=== PATIENT | male | born 1965 | race Hispanic/Latino ===

== ENCOUNTER 2017-06-25 01:37 | Inpatient (IN) | payer MEDICAID ==
[2017-06-25 01:54] VITALS: BMI 38.9
--- NOTE | 2017-06-25 01:55 | ED PDOC ---
HPI: Chest Pain Time Seen by Provider: 06/25/17 01:50 Chief Complaint (Nursing): Chest Pain Chief Complaint (Provider): Chest Pain History Per: Patient History/Exam Limitations: no limitations Onset/Duration Of Symptoms: Hrs (x2) Current Symptoms Are (Timing): Still Present Associated Symptoms: Dyspnea Additional Complaint(s): 52 year old male presents to ED with complaints of chest pain x2 hours and has a past medical history of DVT in his left leg, AAA, active smoking, IVC filter. Patient originally noted pain to his left leg last morning and "feeling weird all day", and stated that onset of chest pain occurred while sitting. Confirms that chest pain radiates to his neck and denies ever experiencing such symptoms in the past. (+) dyspnea. PCP: None - Risk Factors PE Risk Factors: Pos: Previous DVT Past Medical History Reviewed: Historical Data, Nursing Documentation, Vital Signs Vital Signs: Last Vital Signs Temp Pulse 59 L 06/25/17 06:26 Resp 20 06/25/17 06:26 BP 121/65 06/25/17 06:26 Pulse Ox 96 06/25/17 06:26 - Medical History PMH: No Chronic Diseases, COPD, Deep Vein Thrombosis, Seizures, Sleep Apnea - Family History Family History: States: Unknown Family Hx - Social History Current smoker - smoking cessation education provided: Yes SMOKER/PACKS PER DAY:: 1 Ex-Smoker (has not smoked in the last 12 months): No - Immunization History Hx Tetanus Toxoid Vaccination: Yes Hx Influenza Vaccination: No Hx Pneumococcal Vaccination: Yes - Home Medications Home Medications: Ambulatory Orders Medication Instructions Recorded Fluticasone/Salmeterol 500/50 1 INH Q12 11/24/13 [Advair Diskus 500/50] Omeprazole 20 mg PO DAILY 11/24/13 Rivaroxaban [Xarelto] PO DAILY 11/24/13 Tiotropium Daggett Inhaler 1 DAILY 11/24/13 [Spiriva Inhalation Handihaler Device] Acetaminophen/Oxycodone Hydr 1 tab PO Q6 #20 tab 12/23/13 [Percocet 325 mg-5 mg] Gabapentin [Neurontin] 600 mg PO Q8 #0 cap 12/23/13 Naproxen [Anaprox DS] 550 mg PO Q12 PRN #0 tab 12/23/13 Phenytoin Sodium Extended 200 mg PO TID #0 cer 12/23/13 [Dilantin] - Allergies Allergies/Adverse Reactions: Allergies Allergy/AdvReac Type Severity Reaction Status Date / Time No Known Allergies Allergy Verified 06/25/17 01:51 LORNA Risk Score for UA/NSTEMI - LORNA Risk Score Age > 64: NO LORNA Score: 0 Risk %: 5% Curb-65 Severity Score - CURB-65 Severity Score Confusion: No Respiratory Rate greater than/equal to 30: No Systolic BP <90 or Diastolic BP less than/equal 60mmHg: No Age >64: No Curb-65 Score: 0 Percentage 30-day mortality: 0.6% Wells Criteria for PE - Wells Criteria for Pulmonary Embolism Heart Rate >100: Yes Previous, objectively diagnosed PE or DVT: Yes Hemoptysis: No Malignancy w/treatment within 6 months, or palliative: No Total Score: 3.0 Review of Systems ROS Statement: Except As Marked, All Systems Reviewed And Found Negative Cardiovascular: Positive for: Chest Pain Respiratory: Positive for: Shortness of Breath Musculoskeletal: Positive for: Neck Pain (chest pain radiates to neck), Leg Pain (left leg pain) Physical Exam - Reviewed Nursing Documentation Reviewed: Yes Vital Signs Reviewed: Yes - Physical Exam Appears: Positive for: Uncomfortable, In Acute Distress Skin: Positive for: Warm, Diaphoresis Eye Exam: Positive for: Normal appearance, EOMI, PERRL Neck: Positive for: Normal, Painless ROM, Supple Cardiovascular/Chest: Positive for: Regular Rate, Rhythm. Negative for: Murmur Respiratory: Positive for: Normal Breath Sounds Gastrointestinal/Abdominal: Positive for: Normal Exam, Soft. Negative for: Tenderness Neurologic/Psych: Positive for: Alert, Oriented. Negative for: Motor/Sensory Deficits - Laboratory Results Result Diagrams: 06/25/17 01:50 06/25/17 01:50 - Critical Care Total Time (In Min): 60 Medical Decision Making Medical Decision Makin Initial impression: concern for dissection vs PE vs ACS vs PNA Initial plan: * CT DISSECTION STUDY * EKG * Labs * Trop I * PTT/PT * CXR 0342 CT ANGIO CHEST FINDINGS Limitations: Motion artifact - mild. Pulmonary arteries: No pulmonary embolism. Aorta: No dissection. No aneurysm. Lungs: Early centrilobular emphysematous changes. No consolidation. 0.3 cm RIGHT lower lobe nodule. Pleural space: No significant effusion. No pneumothorax. Heart: No cardiomegaly. No significant pericardial effusion. Bones/joints: Degenerative changes of spine. No acute fracture. Soft tissues: Unremarkable. Lymph nodes: No pathologically enlarged lymph nodes. IMPRESSION: 1. No aortic dissection. 2. Pulmonary nodule. For low-risk patients, no follow-up is necessary. For high- risk patients (smoking history or other known risk factors) an optional CT at 12 months could be performed. 3. Incidental/non-acute findings are described above. CT ANGIO A/P FINDINGS Limitations: Motion artifact - mild. VASCULATURE: Aorta: Minimal atherosclerotic disease. No dissection. 3.2 cm infrarenal aneurysm. Peripheral thrombus within aneurysm. No rupture. Celiac trunk and mesenteric arteries: No occlusion or significant stenosis. Renal arteries: No occlusion or significant stenosis. Iliac arteries: Mild atherosclerotic disease. No occlusion or significant stenosis. Inferior vena cava: IVC filter. ABDOMEN: Liver: Unremarkable. No mass. Gallbladder and bile ducts: Unremarkable. No calcified stones. No ductal dilation. Pancreas: Unremarkable. No ductal dilation. No mass. Spleen: Unremarkable. No splenomegaly. Adrenals: Unremarkable. No mass. Kidneys and ureters: Unremarkable. No hydronephrosis. No solid mass. Stomach and bowel: Unremarkable. No obstruction. No mucosal thickening. PELVIS: Appendix: No findings to suggest acute appendicitis. Bladder: Unremarkable. No mass. Reproductive: Prostate not visualized or imaged. ABDOMEN and PELVIS: Intraperitoneal space: Unremarkable. No significant fluid collection. No free air. Retroperitoneal space: Surgical clips within right retroperitoneum. Bones/joints: Degenerative changes of spine. No acute fracture. Soft tissues: Unremarkable. Lymph nodes: No pathologically enlarged lymph nodes. Other findings: IMPRESSION: 1. No aortic dissection. 2. Abdominal aortic aneurysm. Followup as warranted. 3. Incidental/non-acute findings are described above. 0535 Upon re-evaluation patient is feeling much better. Vitals show significant improvement. Will admit for r/o ACS with continuous cardiac monitoring and serial troponin/EKG. Care discussed with DR. Richard who will admit and with Dr. Melendez, cardiology. Pt's BP significantly improved. Scribe Attestation: Documented by April Velazquez acting as a scribe for Owen Grimm MD. Scribe Attestation: All medical record entries made by the Scribe were at my direction and personally dictated by me. I have reviewed the chart and agree that the record accurately reflects my personal performance of the history, physical exam, medical decision making, and the department course for this patient. I have also personally directed, reviewed, and agree with the discharge instructions and disposition. Disposition - Clinical Impression Clinical Impression: Chest pain, AAA (abdominal aortic aneurysm) - Disposition Disposition Time: 06:00 Condition: FAIR
[2017-06-25] MEDS ORDERED: Iodixanol 320 MG/ML 100 ML BOTTLE IV ONE (01:58)
[2017-06-25] MEDS ORDERED: Sodium Chloride 0.9% 100 ML ONE (01:59)
[2017-06-25 02:08] LABS: BASO # 0.1 K/uL (0.0-0.2); EOS # 0.4 K/uL (0.0-0.7); EOS % 2.9 % (0.0-4.0); HEMOGLOBIN 15.6 g/dL (12.0-18.0); LYMPH # 4.5 K/uL (1.0-4.3); MEAN CELL VOLUME 93.4 fl (80.0-94.0); MEAN CORPUSCULAR HEMOGLOBIN 31.5 pg (27.0-31.0); MEAN CORPUSCULAR HGB CONC 33.7 g/dL (33.0-37.0); MEAN PLATELET VOLUME 8.4 fl (7.2-11.7); MONO % 7.6 % (0.0-10.0); NEUT # 6.9 K/uL (1.8-7.0); NEUT % 53.5 % (50.0-75.0); NRBC % 0.1 % (0.0-0.0); RBC 4.94 Mil/uL (4.40-5.90); RED CELL DISTRIBUTION WIDTH 14.1 % (11.5-14.5)
[2017-06-25 02:17] LABS: CALCIUM 9.1 mg/dL (8.4-10.2); GFR AFRICAN-AMERICAN > 60; GFR NON-AFRICAN AMERICAN > 60
[2017-06-25 02:29] LABS: BLOOD UREA NITROGEN 19 mg/dl (9-20)
--- NOTE | 2017-06-25 03:43 | CT ---
EXAM: CT Angiography Chest Without and With Intravenous Contrast CLINICAL HISTORY: 52 years old, male; Pain; Abdominal pain; Generalized; Chest pain; Type not specified; Additional info: Chest pain, abd pain, R/O dissection TECHNIQUE: Axial computed tomographic angiography images of the chest without and with intravenous contrast using pulmonary embolism protocol. All CT scans at this facility use one or more dose reduction techniques, viz.: automated exposure control; ma/kV adjustment per patient size (including targeted exams where dose is matched to indication; i.e. head); or iterative reconstruction technique. MIP reconstructed images were created and reviewed. Coronal and sagittal reformatted images were created and reviewed. CONTRAST: 100 mL of [id number] administered intravenously. COMPARISON: No relevant prior studies available. FINDINGS: Limitations: Motion artifact - mild. Pulmonary arteries: No pulmonary embolism. Aorta: No dissection. No aneurysm. Lungs: Early centrilobular emphysematous changes. No consolidation. 0.3 cm RIGHT lower lobe nodule. Pleural space: No significant effusion. No pneumothorax. Heart: No cardiomegaly. No significant pericardial effusion. Bones/joints: Degenerative changes of spine. No acute fracture. Soft tissues: Unremarkable. Lymph nodes: No pathologically enlarged lymph nodes. IMPRESSION: 1. No aortic dissection. 2. Pulmonary nodule. For low-risk patients, no follow-up is necessary. For high-risk patients (smoking history or other known risk factors) an optional CT at 12 months could be performed. 3. Incidental/non-acute findings are described above. EXAM: CT Angiography Abdomen and Pelvis With Intravenous Contrast CLINICAL HISTORY: 52 years old, male; Pain; Abdominal pain; Generalized; Chest pain; Type not specified; Additional info: Chest pain, abd pain, R/O dissection TECHNIQUE: Axial computed tomographic angiography images of the abdomen and pelvis with intravenous contrast. All CT scans at this facility use one or more dose reduction techniques, viz.: automated exposure control; ma/kV adjustment per patient size (including targeted exams where dose is matched to indication; i.e. head); or iterative reconstruction technique. MIP reconstructed images were created and reviewed. Coronal and sagittal reformatted images were created and reviewed. CONTRAST: 100 mL of [id number] administered intravenously. COMPARISON: No relevant prior studies available. FINDINGS: Limitations: Motion artifact - mild. VASCULATURE: Aorta: Minimal atherosclerotic disease. No dissection. 3.2 cm infrarenal aneurysm. Peripheral thrombus within aneurysm. No rupture. Celiac trunk and mesenteric arteries: No occlusion or significant stenosis. Renal arteries: No occlusion or significant stenosis. Iliac arteries: Mild atherosclerotic disease. No occlusion or significant stenosis. Inferior vena cava: IVC filter. ABDOMEN: Liver: Unremarkable. No mass. Gallbladder and bile ducts: Unremarkable. No calcified stones. No ductal dilation. Pancreas: Unremarkable. No ductal dilation. No mass. Spleen: Unremarkable. No splenomegaly. Adrenals: Unremarkable. No mass. Kidneys and ureters: Unremarkable. No hydronephrosis. No solid mass. Stomach and bowel: Unremarkable. No obstruction. No mucosal thickening. PELVIS: Appendix: No findings to suggest acute appendicitis. Bladder: Unremarkable. No mass. Reproductive: Prostate not visualized or imaged. ABDOMEN and PELVIS: Intraperitoneal space: Unremarkable. No significant fluid collection. No free air. Retroperitoneal space: Surgical clips within right retroperitoneum. Bones/joints: Degenerative changes of spine. No acute fracture. Soft tissues: Unremarkable. Lymph nodes: No pathologically enlarged lymph nodes. Other findings: IMPRESSION: 1. No aortic dissection. 2. Abdominal aortic aneurysm. Followup as warranted. 3. Incidental/non-acute findings are described above.
[2017-06-25] MEDS ORDERED: Morphine 4 MG/ML VIAL IVP STA (04:30)
[2017-06-25] MEDS ORDERED: Morphine 4 MG/ML VIAL ONE (04:57)
[2017-06-25 07:15] LABS: INR 1.1 (0.9-1.2); PARTIAL THROMBOPLASTIN TIME 26.2 Seconds (25.6-37.1); PROTHROMBIN TIME 11.8 Seconds (9.8-13.1)
--- NOTE | 2017-06-25 08:36 | US ---
PROCEDURE: Bilateral lower extremity venous duplex Doppler. HISTORY: r/o DVT COMPARISON: None available. TECHNIQUE: Bilateral common femoral, superficial femoral, popliteal and posterior tibial veins were evaluated. Flow was assessed with color Doppler, compressibility, assessment of phasic flow and augmentation response. FINDINGS: COMMON FEMORAL VEIN: Right CFV: Unremarkable. Left CFV: Unremarkable. SUPERFICIAL FEMORAL VEIN: Right SFV: Unremarkable. Left SFV: Unremarkable. POPLITEAL VEIN: Right Popliteal: Unremarkable. Left Popliteal: Unremarkable. POSTERIOR TIBIAL VEIN: Right PTV: Unremarkable. Left PTV: Unremarkable. OTHER FINDINGS: None. IMPRESSION: No evidence of deep venous thrombosis.
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
--- NOTE | 2017-06-25 09:38 | RAD ---
PROCEDURE: CHEST RADIOGRAPH, 1 VIEW HISTORY: cp, sob COMPARISON: None available. FINDINGS: LUNGS: Clear. PLEURA: No pneumothorax or pleural fluid seen. CARDIOVASCULAR: Normal. OSSEOUS STRUCTURES: No significant abnormalities. VISUALIZED UPPER ABDOMEN: Normal. OTHER FINDINGS: None. IMPRESSION: No active disease.
[2017-06-25 09:42] LABS: BARBITURATES, UR NEGATIVE (NEGATIVE); BENZODIAZEPINES, UR NEGATIVE (NEGATIVE); OPIATES, UR POSITIVE (NEGATIVE); PHENCYCLIDINE, UR NEGATIVE (NEGATIVE)
[2017-06-25 10:24] LABS: URINE BILIRUBIN NEGATIVE (NEGATIVE); URINE BLOOD NEGATIVE (NEGATIVE); URINE CLARITY CLEAR (Clear); URINE COLOR YELLOW (YELLOW); URINE GLUCOSE (UA) NEG (Normal); URINE LEUKOCYTE ESTERASE NEG Leu/uL (Negative); URINE PROTEIN NEGATIVE (NEGATIVE); URINE UROBILINOGEN 0.2-1.0 mg/dL (0.2-1.0)
--- NOTE | 2017-06-25 12:12 | CARD ---
APPROVED REPORT EKG Measurement Heart [id number] <Conclusion> Normal sinus rhythm Rightward axis Borderline ECG
[2017-06-25] MEDS ORDERED: Pneumococcal 23-Valent Vaccine IM ONE (12:24)
[2017-06-25] MEDS: Morphine 4 MG/ML VIAL IVP PRN ×2 (12:32→21:03)
[2017-06-25] MEDS: Fluticasone-Salmeterol 500-50mcg Diskus INH SCH ×2 (13:58→21:02)
[2017-06-25] MEDS: Dextrose 5%/0.45% NS 1,000 ML IV SCH (14:04)
--- NOTE | 2017-06-25 15:24 | US ---
HISTORY: ABDOMINAL PAIN COMPARISON: Correlations made to CTA of the chest, abdomen and pelvis performed earlier the same day. TECHNIQUE: Sonographic evaluation of the abdomen. FINDINGS: LIVER: Enlarged, measuring 17.9 cm. Increased echogenicity of the liver parenchyma. No mass. No intrahepatic bile duct dilatation. GALLBLADDER: Unremarkable. No gallstones. COMMON BILE DUCT: Measures 5 mm. No stones. No dilatation. PANCREAS: Unremarkable as visualized. No mass. No ductal dilatation. RIGHT KIDNEY: Measures 13.2 x 7.0 x 6.4cm. Normal echogenicity. No calculus, mass, or hydronephrosis. LEFT KIDNEY: Measures 14.5 x 6.0 x 5.7cm. Normal echogenicity. No calculus, mass, or hydronephrosis. SPLEEN: Normal in size and contour. No mass. AORTA: No aneurysmal dilatation. IVC: Unremarkable. OTHER FINDINGS: None. IMPRESSION: Hepatomegaly with steatosis.
[2017-06-25] MEDS: Albuterol-Ipratrop 3 mg / 0.5 (3 ml) UD INH SCH ×2 (15:34→19:25)
--- NOTE | 2017-06-25 21:05 | HP ---
HISTORY OF PRESENT ILLNESS: Mr. Mcqueen is a 52-year-old male who was admitted via the emergency room because of chest and abdominal pain. He indicates that he has had right leg pain on and off for about 2 weeks prior to presentation, but then developed abdominal discomfort several days ago and then chest pain. The pain was mainly right sided, but then radiated to the left side, he sought help in the emergency room and at first thought to be having dissecting abdominal aneurysm or thoracic aneurysm and had a CAT scan of the chest and abdomen done, which did not show dissection even though he has small abdominal aneurysm. PAST MEDICAL HISTORY: He has an extensive past medical history including chronic back pain for which he had back surgery done for disk disease and chronic obstructive pulmonary disease, which is due to continue cigarette use. He also has a history of obstructive sleep apnea syndrome for which he is on BiPAP therapy and has been taking blood thinners for deep venous thrombosis of the lower extremity and had an IVC filter placed. He denies any other medical history including blood pressure or diabetes, but was noted to have elevated blood pressure in the emergency room, but that came down to normal without therapy. FAMILY HISTORY: Remarkable for mother who had cardiac disease. SOCIAL HISTORY: The patient continues to smoke cigarettes heavily. Does not use drugs or use alcohol. 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 PHYSICAL EXAMINATION: GENERAL: The patient is morbidly obese. He is alert, oriented, and appears to be in some pain from abdominal discomfort issues that he has a pulsatile abdominal discomfort. VITAL SIGNS: Blood pressure 121/65, but was as high as 177/130, pulse is 60 down from 105, respiratory rate is 20, he is afebrile, and O2 saturation 96% on room air. SKIN: Shows fair turgor. HEENT: Pupils are equal and reactive to light and accommodation. Mouth shows fair hygiene. JVP is flat. LUNGS: Fair aeration. Clear. HEART: Regular. ABDOMEN: Soft with tenderness in the suprapubic area. No masses felt. No organomegaly. EXTREMITIES: Shows no edema or cyanosis. CENTRAL NERVOUS SYSTEM: Appears grossly intact. LABORATORY DATA: WBC 13, hemoglobin 15.6, and platelet count 297,000. Sodium 143, potassium 5, BUN of 19, creatinine 0.9, and troponin 0.012. EKG that was done in the emergency room is remarkable for normal sinus rhythm, right axis deviation, otherwise unremarkable. Chest x-ray official report is pending. CAT scan of chest and abdomen, no aortic dissection, no pulmonary emboli, and emphysematous changes in the lungs noted. The abdomen and gallbladder unremarkable. Pancreas unremarkable. Spleen unremarkable. Adrenals unremarkable. Kidney and ureters unremarkable. Stomach and bowel are unremarkable. Abdominal aortic aneurysm noted 3.2 cm infrarenal, peripheral thrombus within aneurysm, no rupture, mild atherosclerotic disease noted, and IVC filter noted in the inferior vena cava. IMPRESSION: Chest pain appears to be atypical, abdominal pain questionable etiology, hypertension probably secondary to pain to be corrected without medication, history of chronic obstructive pulmonary disease, history of deep venous thrombosis in the past, and history of obstructive sleep apnea syndrome. PLAN: The plan is to admit the patient to telemetry, obtain serial cardiac enzymes to rule out acute coronary syndrome and for pain will be given. We will obtain ultrasound of the abdomen to rule out for intraabdominal pathology. Further therapy will depend on findings. Reddy Richard MD
[2017-06-26] MEDS: Dextrose 5%/0.45% NS 1,000 ML IV SCH (00:25)
[2017-06-26] MEDS: Morphine 4 MG/ML VIAL IVP PRN ×3 (05:45→22:33)
[2017-06-26] MEDS: Albuterol-Ipratrop 3 mg / 0.5 (3 ml) UD INH SCH ×4 (07:37→19:55)
[2017-06-26] MEDS: Fluticasone-Salmeterol 500-50mcg Diskus INH SCH ×2 (08:17→21:59)
--- NOTE | 2017-06-26 08:28 | CP.PCM.PN ---
Subjective - Date & Time of Evaluation Date of Evaluation: 06/26/17 Time of Evaluation: 08:10 - Subjective Subjective: Intermittent abd pain Rxed with morphine No bowel irregularities No chills or fever Able to sleep well No chest pains US abdomen unremarkable findings Echo reviewed : Preserved LV syst function with depressed distolic compliance No blood in urine (Doubt renal calculous) Coccain metabolites in the urine+ve No cardiac issues detected. Objective - Vital Signs/Intake and Output Vital Signs (last 24 hours): Temp Pulse Resp BP Pulse Ox 97.6 F 51 L 18 121/67 96 06/26/17 08:05 06/26/17 08:05 06/26/17 08:05 06/26/17 08:05 06/26/17 08:05 - Medications Medications: Current Medications Albuterol/Ipratropium (Duoneb 3 Mg/0.5 Mg (3 Ml) Ud) 3 ml INH RQID [facility] Last Admin: 06/26/17 07:37 Dose: 3 ml Aspirin (Aspirin Chewable) 81 mg PO DAILY [facility] Last Admin: 06/26/17 08:17 Dose: 81 mg Gabapentin (Neurontin) 600 mg PO Q8 [facility] Last Admin: 06/26/17 08:18 Dose: 600 mg Dextrose/Sodium Chloride (Dextrose 5%/0.45% Ns 1000 Ml) 1,000 mls @ 80 mls/hr IV .[id number] [facility] Stop: 06/26/17 09:48 Last Admin: 06/26/17 00:25 Dose: 80 mls/hr Morphine Sulfate (Morphine) 2 mg IVP Q4 PRN PRN Reason: Pain, moderate (4-7) Last Admin: 06/26/17 05:45 Dose: 2 mg Phenytoin Sodium (Dilantin) 200 mg PO TID [facility] Last Admin: 06/26/17 08:17 Dose: 200 mg Rivaroxaban (Xarelto) 20 mg PO DAILY [facility] PRN Reason: Protocol Last Admin: 06/26/17 08:17 Dose: 20 mg Fluticasone/Salmeterol (Advair Diskus 500/50) 1 puff INH Q12 [facility] Last Admin: 06/26/17 08:17 Dose: 1 puff - Labs Labs: 06/25/17 01:50 06/25/17 01:50 PT 11.8 Seconds (9.8-13.1) 06/25/17 06:45 INR 1.1 (0.9-1.2) 06/25/17 06:45 APTT 26.2 Seconds (25.6-37.1) 06/25/17 06:45
--- NOTE | 2017-06-26 11:59 | CARD ---
APPROVED REPORT EXAM: Two-dimensional and M-mode echocardiogram with Doppler and color Doppler. Other Information Quality : GoodRhythm : NSR INDICATION Dyspnea Chest Pain 2D DIMENSIONS IVSd1.83 (0.7-1.1cm)LVDd4.68 (3.9-5.9cm) LVOT Diameter2.43 (1.8-2.4cm)PWd1.33 (0.7-1.1cm) IVSs1.86 (0.8-1.2cm)LVDs2.53 (2.5-4.0cm) FS (%) 46.0 %PWs1.75 (0.8-1.2cm) M-Mode DIMENSIONS Left Atrium (MM)4.59 (2.5-4.0cm)IVSd1.56 (0.7-1.1cm) Aortic Root3.13 (2.2-3.7cm)LVDd5.03 (4.0-5.6cm) Aortic Cusp Exc.2.00 (1.5-2.0cm)PWd1.25 (0.7-1.1cm) IVSs2.00 cmFS (%) 47 % LVDs2.69 (2.0-3.8cm)PWs1.50 cm Mitral Valve MV E Umnhzwik82.1cm/sMV DECEL [id number] A Rineexis92.3cm/s MV [id number]/A ratio1.3MVA (PHT)2.82cm2 TDI Lateral E' Peak V10.76cm/sMedial E' Peak V8.47cm/sE/Lateral E'7.4 E/Medial E'9.3 Pulmonary Valve PV Peak Mytmaqzq642.9cm/s LEFT VENTRICLE The left ventricle is normal size. There is moderate concentric left ventricular hypertrophy. The left ventricular function is normal. The left ventricular ejection fraction is 60% There is normal LV segmental wall motion. Transmitral Doppler flow pattern is Grade I-abnormal relaxation pattern. No left ventricle thrombus noted on this study. There is no ventricular septal defect visualized. There is no left ventricular aneurysm. There is no mass noted in the left ventricle. RIGHT VENTRICLE The right ventricle is normal size. There is normal right ventricular wall thickness. The right ventricular systolic function is normal. ATRIA The left atrium size is normal. The right atrium size is normal. The interatrial septum is intact with no evidence for an atrial septal defect. AORTIC VALVE The aortic valve is normal in structure. No aortic regurgitation is present. There is no aortic valvular stenosis. There is no aortic valvular vegetation. MITRAL VALVE The mitral valve is normal in structure. There is no evidence of mitral valve prolapse. There is no mitral valve stenosis. There is no mitral valve regurgitation noted. TRICUSPID VALVE The tricuspid valve is normal in structure. There is no tricuspid valve regurgitation noted. There is no tricuspid valve prolapse or vegetation. There is no tricuspid valve stenosis. PULMONIC VALVE The pulmonary valve is normal in structure. There is no pulmonic valvular regurgitation. There is no pulmonic valvular stenosis. GREAT VESSELS The aortic root is normal in size. The ascending aorta is normal in size. The IVC is normal in size and collapses >50% with inspiration. PERICARDIAL EFFUSION The pericardium appears normal. There is no pleural effusion. <Conclusion> Normal LV Function Concentric LVH
--- NOTE | 2017-06-26 13:25 | CP.PCM.PN ---
Subjective - Date & Time of Evaluation Date of Evaluation: 06/26/17 Time of Evaluation: 13:31 - Subjective Subjective: C/O PULSATILE ABDOMINAL PAINS NO RECURRENCE OF CHEST PAINS WANTS TO BE EVALUATED BY SURGERY Objective - Vital Signs/Intake and Output Vital Signs (last 24 hours): Temp Pulse Resp BP Pulse Ox 97.7 F 57 L 18 127/63 97 06/26/17 11:58 06/26/17 11:58 06/26/17 11:58 06/26/17 11:58 06/26/17 11:58 - Medications Medications: Current Medications Albuterol/Ipratropium (Duoneb 3 Mg/0.5 Mg (3 Ml) Ud) 3 ml INH RQID [facility] Last Admin: 06/26/17 11:27 Dose: 3 ml Aspirin (Aspirin Chewable) 81 mg PO DAILY [facility] Last Admin: 06/26/17 08:17 Dose: 81 mg Gabapentin (Neurontin) 600 mg PO Q8 [facility] Last Admin: 06/26/17 08:18 Dose: 600 mg Morphine Sulfate (Morphine) 2 mg IVP Q4 PRN PRN Reason: Pain, moderate (4-7) Last Admin: 06/26/17 05:45 Dose: 2 mg Phenytoin Sodium (Dilantin) 200 mg PO TID [facility] Last Admin: 06/26/17 12:58 Dose: 200 mg Rivaroxaban (Xarelto) 20 mg PO DAILY [facility] PRN Reason: Protocol Last Admin: 06/26/17 08:17 Dose: 20 mg Fluticasone/Salmeterol (Advair Diskus 500/50) 1 puff INH Q12 [facility] Last Admin: 06/26/17 08:17 Dose: 1 puff - Labs Labs: 06/25/17 01:50 06/25/17 01:50 PT 11.8 Seconds (9.8-13.1) 06/25/17 06:45 INR 1.1 (0.9-1.2) 06/25/17 06:45 APTT 26.2 Seconds (25.6-37.1) 06/25/17 06:45 - Constitutional Appears: No Acute Distress - Head Exam Head Exam: ATRAUMATIC, NORMAL INSPECTION, NORMOCEPHALIC - Eye Exam Eye Exam: EOMI, Normal appearance, PERRL Pupil Exam: NORMAL ACCOMODATION, PERRL - ENT Exam ENT Exam: Mucous Membranes Moist, Normal Exam - Neck Exam Neck Exam: Full ROM, Normal Inspection. absent: Lymphadenopathy - Respiratory Exam Respiratory Exam: Clear to Ausculation Bilateral, NORMAL BREATHING PATTERN - Cardiovascular Exam Cardiovascular Exam: REGULAR RHYTHM, +S1, +S2. absent: Murmur - GI/Abdominal Exam GI & Abdominal Exam: Soft, Normal Bowel Sounds. absent: Tenderness - Rectal Exam Rectal Exam: NORMAL INSPECTION - Extremities Exam Extremities Exam: Full ROM, Normal Capillary Refill, Normal Inspection. absent : Joint Swelling, Pedal Edema - Back Exam Back Exam: NORMAL INSPECTION - Neurological Exam Neurological Exam: Alert, Awake, CN II-XII Intact, Normal Gait, Oriented x3 - Psychiatric Exam Psychiatric exam: Normal Affect, Normal Mood - Skin Skin Exam: Dry, Intact, Normal Color, Warm Assessment and Plan - Assessment and Plan (Free Text) Assessment: ATYPICAL CHEST PAINS RESOLVED ABDOMINAL PAINS--?ETIOLOGY AAA-NO EVIDENCE OF DISSECTION ILLICIT DRUG USE HX OF DVT CHRONIC BACK PAIN COPD HX OF SEIZURES Plan: WILL OBTAIN VASCULAR SURGERY EVAL--IF CLEARED,WILL PLAN D/C IN AM AND OUT PT FOLLOW UP
--- NOTE | 2017-06-26 13:32 | PQF GENQUE ---
This form is a permanent part of the medical record 06/26/17 Dr. Richard, 2 physician clarifications: 1) Please specify intended meaning of 'DVT': Deep vein thrombosis Deep vein thrombophlebitis Both deep vein thrombosis and thrombophlebitis Other (please specify) Unknown 2) 3. Please specify the acuity: Acute Chronic History of/healed with no prophylaxis History of/healed with prophylaxis Other (please specify) Clinically unable to determine Unknown Documentation of a history of DVT and IVC filter . Venous Doppler : No evidence of deep venous thrombosis. Currently with active treatment of Xarelto. Clarification of your documentation is requested to better reflect the severity of illness and intensity of treatment of your patient. Indicators present PHYSICIAN'S RESPONSE Based on your medical judgment of the clinical indicators outlined above please clarify the following: [x] Practitioner response --chronic deep venous thrombosis of lower extremity [] If unable to determine, please check the box, sign and date. Present On Admission (POA) Indicator: [] Present at the time of admission [] Not present at the time of admission [] Clinically Undetermined In responding to this query, please exercise your independent professional judgment. The fact that a question is asked does not imply that any particular answer is desired or expected. Thank you for your clarification on this documentation. If you have any questions please call:ext [phone] * Thank you, Ximena Desir RN [facility]
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
[2017-06-27] MEDS: Morphine 4 MG/ML VIAL IVP PRN ×3 (04:41→14:08)
[2017-06-27] MEDS: Albuterol-Ipratrop 3 mg / 0.5 (3 ml) UD INH SCH ×4 (07:40→19:31)
[2017-06-27] MEDS: Fluticasone-Salmeterol 500-50mcg Diskus INH SCH ×2 (09:16→22:44)
--- NOTE | 2017-06-27 10:36 | CP.PCM.PN ---
Subjective - Date & Time of Evaluation Date of Evaluation: 06/27/17 Time of Evaluation: 10:33 - Subjective Subjective: Vascular Pt seen and examined. No acute events. Denies fever, nausea, diarrhea, hematochezia. Pain controlled. Pt insisting on surgical intervention ( diagnostic laparoscopy , AAA repair) eventhough we explained that there is no indicatin for surgery at this time. Objective - Vital Signs/Intake and Output Vital Signs (last 24 hours): Temp Pulse Resp BP Pulse Ox 97.8 F 65 20 189/76 H 98 06/27/17 08:02 06/27/17 09:00 06/27/17 08:02 06/27/17 08:02 06/27/17 08:02 - Medications Medications: Current Medications Albuterol/Ipratropium (Duoneb 3 Mg/0.5 Mg (3 Ml) Ud) 3 ml INH RQID [facility] Last Admin: 06/27/17 07:40 Dose: 3 ml Aspirin (Aspirin Chewable) 81 mg PO DAILY [facility] Last Admin: 06/27/17 09:16 Dose: 81 mg Gabapentin (Neurontin) 600 mg PO Q8 [facility] Last Admin: 06/27/17 09:16 Dose: 600 mg Morphine Sulfate (Morphine) 2 mg IVP Q4 PRN PRN Reason: Pain, moderate (4-7) Last Admin: 06/27/17 09:38 Dose: 2 mg Phenytoin Sodium (Dilantin) 200 mg PO TID [facility] Last Admin: 06/27/17 09:16 Dose: 200 mg Rivaroxaban (Xarelto) 20 mg PO DAILY [facility] PRN Reason: Protocol Last Admin: 06/27/17 09:17 Dose: 20 mg Fluticasone/Salmeterol (Advair Diskus 500/50) 1 puff INH Q12 [facility] Last Admin: 06/27/17 09:16 Dose: 1 puff - Labs Labs: 06/25/17 01:50 06/25/17 01:50 PT 11.8 Seconds (9.8-13.1) 06/25/17 06:45 INR 1.1 (0.9-1.2) 06/25/17 06:45 APTT 26.2 Seconds (25.6-37.1) 06/25/17 06:45 - Constitutional Appears: No Acute Distress - Head Exam Head Exam: ATRAUMATIC, NORMAL INSPECTION, NORMOCEPHALIC - Eye Exam Eye Exam: EOMI, Normal appearance, PERRL Pupil Exam: NORMAL ACCOMODATION, PERRL - ENT Exam ENT Exam: Mucous Membranes Moist, Normal Exam - Neck Exam Neck Exam: Full ROM, Normal Inspection. absent: Lymphadenopathy - Respiratory Exam Respiratory Exam: Clear to Ausculation Bilateral, NORMAL BREATHING PATTERN - Cardiovascular Exam Cardiovascular Exam: REGULAR RHYTHM, +S1, +S2. absent: Murmur - GI/Abdominal Exam GI & Abdominal Exam: Soft, Normal Bowel Sounds. absent: Distended, Firm, Guarding, Rigid, Tenderness - Extremities Exam Extremities Exam: Full ROM, Normal Capillary Refill, Normal Inspection. absent : Joint Swelling, Pedal Edema - Back Exam Back Exam: NORMAL INSPECTION - Neurological Exam Neurological Exam: Alert, Awake, CN II-XII Intact, Normal Gait, Oriented x3 - Psychiatric Exam Psychiatric exam: Normal Affect, Normal Mood - Skin Skin Exam: Dry, Intact, Normal Color, Warm Assessment and Plan - Assessment and Plan (Free Text) Assessment: 52M w polysubstance abuse including cocaine came with abdominal pain/ chest pain. Onset coincides with cocaine abuse. Pain and symptoms likely 2/2 vascular spasm due to cocaine abuse. Possibly from scar tissue from previous abdominal surgeries CT: no PE, no aortic dissection, no AAA. infra abdominal aorta 3.2cm. 2014 abdominal aorta 3.1cm VSS Plan: -Cocaine cessation -No surgical intervention needed at this time -Pain control -OK to DC for surgical standpoint -Recommend GI eval for upper endoscopy to r/o gastritis, GERD DW Dr. Howard
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
--- NOTE | 2017-06-27 11:41 | CP.PCM.DIS ---
Provider - Provider Date of Admission: 06/25/17 05:00 Attending physician: Reddy Richard MD Primary care physician: Collin Roe MD Time Spent in preparation of Discharge (in minutes): 35 Diagnosis - Discharge Diagnosis (1) Abdominal pain Status: Acute (2) Hypertension Status: Acute (3) Disc disorder Status: Acute (4) Illicit drug use Status: Acute (5) AAA (abdominal aortic aneurysm) Status: Acute (6) Chest pain Status: Acute (7) COPD (chronic obstructive pulmonary disease) Status: Acute (8) Seizure Status: Acute (9) Sleep apnea Status: Chronic Hospital Course - Lab Results Lab Results: Most Recent Lab Values WBC 13.0 K/uL (4.8-10.8) H 06/25/17 01:50 RBC 4.94 Mil/uL (4.40-5.90) 06/25/17 01:50 Hgb 15.6 g/dL (12.0-18.0) 06/25/17 01:50 Hct 46.2 % (35.0-51.0) 06/25/17 01:50 MCV 93.4 fl (80.0-94.0) 06/25/17 01:50 MCH 31.5 pg (27.0-31.0) H 06/25/17 01:50 MCHC 33.7 g/dL (33.0-37.0) 06/25/17 01:50 RDW 14.1 % (11.5-14.5) 06/25/17 01:50 Plt Count 297 K/uL (130-400) 06/25/17 01:50 MPV 8.4 fl (7.2-11.7) 06/25/17 01:50 Neut % (Auto) 53.5 % (50.0-75.0) 06/25/17 01:50 Lymph % (Auto) 35.0 % (20.0-40.0) 06/25/17 01:50 Frio % (Auto) 7.6 % (0.0-10.0) 06/25/17 01:50 Eos % (Auto) 2.9 % (0.0-4.0) 06/25/17 01:50 Baso % (Auto) 1.0 % (0.0-2.0) 06/25/17 01:50 Neut # (Auto) 6.9 K/uL (1.8-7.0) 06/25/17 01:50 Lymph # (Auto) 4.5 K/uL (1.0-4.3) H 06/25/17 01:50 Frio # (Auto) 1.0 K/uL (0.0-0.8) H 06/25/17 01:50 Eos # (Auto) 0.4 K/uL (0.0-0.7) 06/25/17 01:50 Baso # (Auto) 0.1 K/uL (0.0-0.2) 06/25/17 01:50 PT 11.8 Seconds (9.8-13.1) 06/25/17 06:45 INR 1.1 (0.9-1.2) 06/25/17 06:45 APTT 26.2 Seconds (25.6-37.1) 06/25/17 06:45 Sodium 143 mmol/l (132-148) 06/25/17 01:50 Potassium 5.0 MMOL/L (3.6-5.0) 06/25/17 01:50 Chloride 105 mmol/L (98-107) 06/25/17 01:50 Carbon Dioxide 25 mmol/L (22-30) 06/25/17 01:50 Anion Gap 18 (10-20) 06/25/17 01:50 BUN 19 mg/dl (9-20) 06/25/17 01:50 Creatinine 0.9 mg/dl (0.8-1.5) 06/25/17 01:50 Est GFR ( Amer) > 60 06/25/17 01:50 Est GFR (Non-Af Amer) > 60 06/25/17 01:50 Random Glucose 98 mg/dL (75-110) 06/25/17 01:50 Calcium 9.1 mg/dL (8.4-10.2) 06/25/17 01:50 Troponin I 0.0120 ng/mL (0.00-0.120) 06/25/17 01:50 Urine Color Yellow (YELLOW) 06/25/17 09:30 Urine Clarity Clear (Clear) 06/25/17 09:30 Urine pH 5.0 (5.0-8.0) 06/25/17 09:30 Ur Specific [place] > 1.060 (1.003-1.030) H 06/25/17 09:30 Urine Protein Negative mg/dL (NEGATIVE) 06/25/17 09:30 Urine Glucose (UA) Neg mg/dL (Normal) 06/25/17 09:30 Urine Ketones Negative mg/dL (NEGATIVE) 06/25/17 09:30 Urine Blood Negative (NEGATIVE) 06/25/17 09:30 Urine Nitrate Negative (NEGATIVE) 06/25/17 09:30 Urine Bilirubin Negative (NEGATIVE) 06/25/17 09:30 Urine Urobilinogen 0.2-1.0 mg/dL (0.2-1.0) 06/25/17 09:30 Ur Leukocyte Esterase Neg [place]/uL (Negative) 06/25/17 09:30 Urine Opiates Screen Positive (NEGATIVE) H 06/25/17 09:00 Urine Methadone Screen Negative (NEGATIVE) 06/25/17 09:00 Ur Barbiturates Screen Negative (NEGATIVE) 06/25/17 09:00 Phenytoin < 3.0 ug/ML (10-20) L 06/25/17 11:40 Ur Phencyclidine Scrn Negative (NEGATIVE) 06/25/17 09:00 Ur Amphetamines Screen Negative (NEGATIVE) 06/25/17 09:00 U Benzodiazepines Scrn Negative (NEGATIVE) 06/25/17 09:00 U Oth Cocaine Metabols Positive (NEGATIVE) H 06/25/17 09:00 U Cannabinoids Screen Positive (NEGATIVE) H 06/25/17 09:00 - Hospital Course Hospital Course: CONTINUES TO C/O RECURRENT/EPISODIC ABDOMINAL PAINS SLEEPS PEACEFULLY ONCE MEDICATED WITH MORPHINE Discharge Exam - Head Exam Head Exam: ATRAUMATIC, NORMAL INSPECTION, NORMOCEPHALIC - Eye Exam Eye Exam: EOMI, Normal appearance, PERRL Pupil Exam: NORMAL ACCOMODATION, PERRL - GI/Abdominal Exam GI & Abdominal Exam: Normal Bowel Sounds - Rectal Exam Rectal Exam: NORMAL INSPECTION - Neurological Exam Neurological exam: Alert, CN II-XII Intact, Normal Gait, Oriented x3, Reflexes Normal - Psychiatric Exam Psychiatric exam: Normal Affect, Normal Mood - Skin Skin Exam: Dry, Intact, Normal Color, Warm Discharge Plan - Follow Up Plan Condition: FAIR Disposition: HOME/ ROUTINE Patient education suggested?: Yes Instructions: Chest Pain That Is Not Caused by the Heart (DC), Acute Abdomen ( Belly Pain), Adult (DC), Polysubstance Abuse (DC) Additional Instructions: follow up in 1 week with pmd Referrals: Yoseph Howard MD [Medical Doctor] - Clolin Roe MD [Primary Care Provider] - Reddy Richard MD [Staff Provider] -
[2017-06-27 18:11] LABS: SQUAMOUS EPITHIAL 1 /hpf (0-5); URINE BACTERIA RARE (<OCC); URINE BILIRUBIN NEGATIVE (NEGATIVE); URINE BLOOD LARGE (NEGATIVE); URINE CLARITY CLOUDY (Clear); URINE COLOR YELLOW (YELLOW); URINE GLUCOSE (UA) NEG (Normal); URINE LEUKOCYTE ESTERASE SMALL Leu/uL (Negative); URINE PROTEIN 30 mg/dL (NEGATIVE); URINE UROBILINOGEN 0.2-1.0 mg/dL (0.2-1.0)
[2017-06-27 18:34] LABS: HEMOGLOBIN 15.4 g/dL (12.0-18.0); MEAN CELL VOLUME 92.5 fl (80.0-94.0); MEAN CORPUSCULAR HGB CONC 33.6 g/dL (33.0-37.0); RBC 4.96 Mil/uL (4.40-5.90); RED CELL DISTRIBUTION WIDTH 14.4 % (11.5-14.5); WHITE BLOOD COUNT 10.2 K/uL (4.8-10.8)
[2017-06-27 19:08] LABS: ALB/GLOB RATIO 1.1 (1.0-2.1); ALT/SGPT 24 U/L (21-72); AST/SGOT 19 U/L (17-59); BLOOD UREA NITROGEN 12 mg/dl (9-20); GFR AFRICAN-AMERICAN > 60; GFR NON-AFRICAN AMERICAN > 60
[2017-06-28] MEDS: Albuterol-Ipratrop 3 mg / 0.5 (3 ml) UD INH SCH ×4 (07:27→19:44)
[2017-06-28 08:51] LABS: HEMOGLOBIN 15.2 g/dL (12.0-18.0); MEAN CELL VOLUME 91.9 fl (80.0-94.0); MEAN CORPUSCULAR HEMOGLOBIN 31.2 pg (27.0-31.0); MEAN CORPUSCULAR HGB CONC 33.9 g/dL (33.0-37.0); RBC 4.89 Mil/uL (4.40-5.90); RED CELL DISTRIBUTION WIDTH 14.2 % (11.5-14.5); WHITE BLOOD COUNT 9.1 K/uL (4.8-10.8)
[2017-06-28 09:14] LABS: BLOOD UREA NITROGEN 15 mg/dl (9-20); CALCIUM 9.2 mg/dL (8.4-10.2); GFR AFRICAN-AMERICAN > 60; GFR NON-AFRICAN AMERICAN > 60
[2017-06-28] MEDS ORDERED: Alum-Mag Hydrox-Simethicone Susp (30 mL) PO PRN (09:52)
[2017-06-28] MEDS: Fluticasone-Salmeterol 500-50mcg Diskus INH SCH ×2 (09:53→22:45)
[2017-06-28] MEDS: Pantoprazole 40 mg EC Tab PO SCH (10:27)
--- NOTE | 2017-06-28 18:16 | CP.PCM.PN ---
Subjective - Date & Time of Evaluation Date of Evaluation: 06/28/17 Time of Evaluation: 12:00 - Subjective Subjective: Patient was seen and examined at bedside. He continues to have intermittent abdominal pain radiating up into his chest. Progress notes by Dr. Richard were reviewed. During the day the patient had intermittent episodes of significant hypertension, probably related to anxiety and drug use. Objective - Vital Signs/Intake and Output Vital Signs (last 24 hours): Temp Pulse Resp BP Pulse Ox 98.0 F 65 18 194/82 H 98 06/28/17 13:03 06/28/17 13:03 06/28/17 13:03 06/28/17 13:03 06/28/17 13:03 - Medications Medications: Current Medications Al Hydrox/Mg Hydrox/Simethicone (Maalox Plus 30 Ml) 30 ml PO Q6 PRN PRN Reason: Indigestion / Heartburn Albuterol/Ipratropium (Duoneb 3 Mg/0.5 Mg (3 Ml) Ud) 3 ml INH RQID [facility] Last Admin: 06/28/17 15:35 Dose: 3 ml Cyclobenzaprine HCl (Flexeril) 10 mg PO TID [facility] Last Admin: 06/28/17 16:04 Dose: 10 mg Dicyclomine HCl (Bentyl) 20 mg PO QID [facility] Last Admin: 06/28/17 17:58 Dose: Not Given Gabapentin (Neurontin) 600 mg PO Q8 [facility] Last Admin: 06/28/17 16:03 Dose: 600 mg Pantoprazole Sodium (Protonix Ec Tab) 40 mg PO DAILY [facility] Last Admin: 06/28/17 10:27 Dose: 40 mg Phenytoin Sodium (Dilantin) 200 mg PO TID [facility] Last Admin: 06/28/17 16:03 Dose: 200 mg Fluticasone/Salmeterol (Advair Diskus 500/50) 1 puff INH Q12 [facility] Last Admin: 06/28/17 09:53 Dose: 1 puff - Labs Labs: 06/28/17 08:40 06/28/17 08:40 PT 11.8 Seconds (9.8-13.1) 06/25/17 06:45 INR 1.1 (0.9-1.2) 06/25/17 06:45 APTT 26.2 Seconds (25.6-37.1) 06/25/17 06:45 - Additional Findings Additional findings: Physical exam: Constitutional- cooperative, awake, alert Head- NCAT, PERRL Eye- PERRL, EOMI ENT- normal exam, MMM. Neck- normal inspection, supple, no JVD Respiratory- CTAB, no wheezes rales rhonchi Cardiovascular- RRR, +S1, +S2 no MRG GI/Abdominal- obese, normal bowel sounds, soft, no mass, no hsm Skin- warm, dry, with excoriations on left shoulder, small hematoma on left arm. Extremities Exam- normal capillary refill, normal inspection Neurological Exam- alert, awake, oriented Psych- normal mood, normal affect Assessment and Plan - Assessment and Plan (Free Text) Plan: Patient is a 52 year old male with history of polysubstance abuse admitted for atypical chest pain, now with episodic significant hypertension and hematuria 1) Hypertension, episodic, uncontrolled - Give Labetaolol - continue hemodynamic monitoring - Possibly due to cocaine use - 194/82 2) Hematuria on newest U/A, first U/a negative for hematuria - Hg stable - For outpatient follow up 3) Abdominal pain of unclear etiology - Appears to be consistent with muscular spasms/possible esophageal spasm, also with history of GERD - Continue Protonix - Maalox - Bentyl PRN for cramps - Flexeril for muscular spasms 4) Hx seizures - Phenytoin - chronic 5) AAA - chronic - no evidence of dissection - cleared by Dr. Howard 6) Atypical chest pains - Improved - ACS ruled out - no evidence of dissection as above 7) Polysubstance abuse - cocaine use- must refrain in the future - counseled 8) DVT prophylaxis - IVC filter - Venous doppler neg
[2017-06-29 06:39] LABS: HEMOGLOBIN 14.5 g/dL (12.0-18.0); MEAN CELL VOLUME 93.9 fl (80.0-94.0); MEAN CORPUSCULAR HEMOGLOBIN 31.2 pg (27.0-31.0); MEAN CORPUSCULAR HGB CONC 33.2 g/dL (33.0-37.0); RBC 4.64 Mil/uL (4.40-5.90); RED CELL DISTRIBUTION WIDTH 14.4 % (11.5-14.5); WHITE BLOOD COUNT 7.9 K/uL (4.8-10.8)
[2017-06-29 06:47] LABS: BLOOD UREA NITROGEN 18 mg/dl (9-20); CALCIUM 8.8 mg/dL (8.4-10.2); GFR AFRICAN-AMERICAN > 60; GFR NON-AFRICAN AMERICAN > 60
[2017-06-29] MEDS: Albuterol-Ipratrop 3 mg / 0.5 (3 ml) UD INH SCH ×4 (07:17→19:22)
[2017-06-29] MEDS: Pantoprazole 40 mg EC Tab PO SCH (08:26)
[2017-06-29] MEDS: Fluticasone-Salmeterol 500-50mcg Diskus INH SCH ×2 (08:26→21:19)
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
--- NOTE | 2017-06-29 15:27 | US ---
PROCEDURE: Duplex ultrasound of the right lower extremity arteries. HISTORY: r/o embolus COMPARISON: None available. TECHNIQUE: Grayscale and duplex Doppler evaluation of the right common femoral, superficial femoral, popliteal, posterior tibial and dorsalis pedis arteries was performed.. FINDINGS: COMMON FEMORAL ARTERY: Patent. Maximal flow velocity of 90.5 cm/s. High resistance waveform is encountered apparent triphasic with no significant stenosis evident. SUPERFICIAL FEMORAL ARTERY:Patent. Maximal flow velocity of 118.8 cm/s. High resistance waveform with no significant stenosis identified. POPLITEAL ARTERY:Patent. Maximal flow velocity of 60.3 cm/s. High resistance waveform with no significant stenosis identified. POSTERIOR TIBIAL ARTERY: Patent. Maximal flow velocity of 64.0 cm/s. High resistance waveform and no significant stenosis identified. ANTERIOR TIBIAL ARTERY: Patent. Maximal flow velocity of 21.1 cm/s. Monophasic waveform suspicious for severe arterial disease. DORSALIS PEDIS ARTERY: Patent. Maximal flow velocity of 62.1 cm/s. Relatively high resistance waveform which appears high resistance with no significant stenosis evident. OTHER FINDINGS: None. IMPRESSION: Monophasic waveform at the anterior tibial artery indicates severe arterial disease with no significant stenosis otherwise appreciable throughout the remainder of the exam. This can be characterized further by MR, CT or conventional angiography.
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
[2017-06-29] MEDS ORDERED: Labetalol 5 mg/ml Inj 20ML IVP ONE (20:00)
[2017-06-29] MEDS: POLYETHYLENE GLYCOL 3350 17 GM/Dose PACKET PO SCH (21:21)
[2017-06-30] MEDS: Albuterol-Ipratrop 3 mg / 0.5 (3 ml) UD INH SCH ×4 (07:34→19:10)
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
[2017-06-30] MEDS: Pantoprazole 40 mg EC Tab PO SCH ×2 (10:09→11:44)
[2017-06-30] MEDS: Fluticasone-Salmeterol 500-50mcg Diskus INH SCH ×3 (10:11→21:27)
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
--- NOTE | 2017-06-30 15:30 | CT ---
PROCEDURE: CT Angiography Abdomen, Pelvis and Lower Extremity with Contrast HISTORY: r/o renal artery dissection COMPARISON: None. TECHNIQUE: Technique: CT angiography of the abdomen, pelvis and bilateral lower extremities performed in the arterial phase of enhancement. Coronal and sagittal reformats, and well as rotating MIP images of the vessels generated at the workstation. Intravenous contrast dose: 99 mL Visipaque 320 Radiation dose: Total exam DLP = 2125 mGy-cm. This CT exam was performed using one or more of the following dose reduction techniques: Automated exposure control, adjustment of the mA and/or kV according to patient size, and/or use of iterative reconstruction technique. FINDINGS: CT ANGIOGRAPHY: ABDOMINAL AORTA:: Stable appearance of infrarenal abdominal aortic aneurysm measuring up to 3.4 cm with peripheral thrombus. MAJOR AORTIC BRANCHES: Celiac [place]: Unremarkable. Superior mesenteric artery: Unremarkable. Inferior mesenteric artery: Unremarkable. Renal arteries: Unremarkable. PELVIC ARTERIES: Right Common Iliac: Unremarkable. Right External Iliac: Unremarkable. Right Internal Iliac: Unremarkable. Left Common Iliac: Unremarkable. Left External Iliac: Unremarkable. Left Internal Iliac: Unremarkable. RIGHT LOWER EXTREMITY ARTERIES: Right Common Femoral: Unremarkable. Right Superficial Femoral: Unremarkable. Right Profunda Femoris: Unremarkable. LEFT LOWER EXTREMITY ARTERIES: Left Common Femoral: Unremarkable. Left Superficial Femoral: Unremarkable. Left Profunda Femoris: Unremarkable. NON-ANGIOGRAPHIC ASPECT OF THE EXAM: LOWER THORAX: Unremarkable. LIVER: Unremarkable. No gross lesion or ductal dilatation. GALLBLADDER AND BILE DUCTS: Unremarkable. PANCREAS: Unremarkable. No gross lesion or ductal dilatation. SPLEEN: Unremarkable. Multiple splenules. ADRENALS: Unremarkable. No mass. KIDNEYS AND URETERS: Unremarkable. No hydronephrosis. No solid mass. STOMACH AND BOWEL: Unremarkable. No obstruction. No gross mural thickening. APPENDIX: Not visualized. PERITONEUM: Unremarkable. No free fluid. No free air. LYMPH NODES: Unremarkable. No enlarged lymph nodes. BLADDER: Unremarkable. REPRODUCTIVE: Unremarkable. BONES: No acute fracture. OTHER FINDINGS: Inferior vena cava filter. IMPRESSION: No evidence of renal artery dissection. Stable appearance of infrarenal abdominal aortic aneurysm. Follow up as warranted.
[2017-06-30] MEDS: POLYETHYLENE GLYCOL 3350 17 GM/Dose PACKET PO SCH (21:28)
[2017-07-01] MEDS: Albuterol-Ipratrop 3 mg / 0.5 (3 ml) UD INH SCH ×3 (08:08→15:18)
[2017-07-01] MEDS: Fluticasone-Salmeterol 500-50mcg Diskus INH SCH (08:24)
[2017-07-01] MEDS: Pantoprazole 40 mg EC Tab PO SCH (08:30)
[2017-07-01 08:31] LABS: HEMOGLOBIN 14.6 g/dL (12.0-18.0); MEAN CELL VOLUME 92.8 fl (80.0-94.0); MEAN CORPUSCULAR HEMOGLOBIN 31.7 pg (27.0-31.0); MEAN CORPUSCULAR HGB CONC 34.2 g/dL (33.0-37.0); RBC 4.62 Mil/uL (4.40-5.90); RED CELL DISTRIBUTION WIDTH 14.1 % (11.5-14.5); WHITE BLOOD COUNT 8.3 K/uL (4.8-10.8)
[2017-07-01 08:36] LABS: BLOOD UREA NITROGEN 19 mg/dl (9-20); GFR AFRICAN-AMERICAN > 60; GFR NON-AFRICAN AMERICAN > 60
--- NOTE | 2017-07-01 09:52 | CP.PCM.PN ---
Subjective - Date & Time of Evaluation Date of Evaluation: 07/01/17 Time of Evaluation: 09:50 - Subjective Subjective: Nephrology Follow up S: continues to have episodes of flushing / uncontrolled bp exam: vitals noted,as below gen: nad sclera: anicteric op: clear neck: supple no appreciable thyromegaly no jvd [id number] no rub no resp distress, lungs clear abd soft, obese, non distended, midline scar, mild tenderness on palpation no r/ g ext no edema skin normal cooperative labs reviewed A&P: htn urgency/drug abuse (cocaine)/abdominal pain/hematuria/infrarenal AAA 3.2 cm renal function is normal ? gross hematuria from anticoagulation which is now off - recc consider eval at some point. bp is improved. can consider longer acting medication instead of clonidine - norvasc or daniel/arb. secondary hypertensive work up in progress - ct angio reviewed w/ no evidence of CARLOS. Will check plasma metanephrines and renin/adlo discussed w/ dr. laws. Objective - Vital Signs/Intake and Output Vital Signs (last 24 hours): Temp Pulse Resp BP Pulse Ox 97.6 F 62 18 176/70 H 96 07/01/17 07:41 07/01/17 08:29 07/01/17 07:41 07/01/17 08:29 07/01/17 07:41 - Medications Medications: Current Medications Al Hydrox/Mg Hydrox/Simethicone (Maalox Plus 30 Ml) 30 ml PO Q6 PRN PRN Reason: Indigestion / Heartburn Last Admin: 06/29/17 21:19 Dose: 30 ml Albuterol/Ipratropium (Duoneb 3 Mg/0.5 Mg (3 Ml) Ud) 3 ml INH RQID [facility] Last Admin: 07/01/17 08:08 Dose: 3 ml Clonidine HCl (Catapres) 0.3 mg PO TID [facility] Last Admin: 07/01/17 08:29 Dose: 0.3 mg Cyclobenzaprine HCl (Flexeril) 10 mg PO TID [facility] Last Admin: 07/01/17 08:26 Dose: 10 mg Dicyclomine HCl (Bentyl) 20 mg PO QID [facility] Last Admin: 07/01/17 08:25 Dose: 20 mg Gabapentin (Neurontin) 600 mg PO Q8 [facility] Last Admin: 07/01/17 08:31 Dose: 600 mg Ketorolac Tromethamine (Toradol) 30 mg IVP Q6 PRN PRN Reason: Pain, moderate (4-7) Last Admin: 06/30/17 22:24 Dose: 30 mg Pantoprazole Sodium (Protonix Ec Tab) 40 mg PO DAILY [facility] Last Admin: 07/01/17 08:30 Dose: 40 mg Phenytoin Sodium (Dilantin) 200 mg PO TID [facility] Last Admin: 07/01/17 08:29 Dose: 200 mg Polyethylene Glycol (Miralax) 17 gm PO HS [facility] Last Admin: 06/30/17 21:28 Dose: Not Given Fluticasone/Salmeterol (Advair Diskus 500/50) 1 puff INH Q12 [facility] Last Admin: 07/01/17 08:24 Dose: 1 puff - Labs Labs: 07/01/17 08:12 07/01/17 08:12 PT 11.8 Seconds (9.8-13.1) 06/25/17 06:45 INR 1.1 (0.9-1.2) 06/25/17 06:45 APTT 26.2 Seconds (25.6-37.1) 06/25/17 06:45
[2017-07-01 12:30] LABS: SQUAMOUS EPITHIAL 2 /hpf (0-5); URINE BILIRUBIN NEGATIVE (NEGATIVE); URINE BLOOD MODERATE (NEGATIVE); URINE CLARITY SLIGHTY-CLOUDY (Clear); URINE COLOR YELLOW (YELLOW); URINE GLUCOSE (UA) NEG (Normal); URINE LEUKOCYTE ESTERASE MOD Leu/uL (Negative); URINE PROTEIN NEGATIVE (NEGATIVE); URINE UROBILINOGEN 0.2-1.0 mg/dL (0.2-1.0)
[2017-07-01 15:41] VITALS: BP 137/87; PULSE 75; RESP 20; TEMP 97.7; O2SAT 100
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
== END 2017-07-01 17:10 | disposition home or self-care (01) | DRG 143 ==
LOC: H.ER 01:37 → H.ERHOLD 05:00 → H.TEL 11:43
PROVIDERS: ADMIT Internal Medicine; ATTEND Internal Medicine
PROC: 3E0234Z Introduction of Serum, Toxoid and Vaccine into Muscle, Percutaneous Approach (ICD-10-PCS; principal; 2017-06-25)
DX: R07.89 Other chest pain (principal); F14.10 Cocaine abuse, uncomplicated; I82.5Z9 Chronic embolism and thrombosis of unspecified deep veins of unspecified distal lower extremity; J44.9 Chronic obstructive pulmonary disease, unspecified; I16.0 Hypertensive urgency; I71.4 Abdominal aortic aneurysm, without rupture; F12.10 Cannabis abuse, uncomplicated; R31.0 Gross hematuria; G89.29 Other chronic pain; E66.01 Morbid (severe) obesity due to excess calories; Z68.39 Body mass index [BMI] 39.0-39.9, adult; M48.061 Spinal stenosis, lumbar region without neurogenic claudication; G47.33 Obstructive sleep apnea (adult) (pediatric); G40.909 Epilepsy, unspecified, not intractable, without status epilepticus; F17.210 Nicotine dependence, cigarettes, uncomplicated; K21.9 Gastro-esophageal reflux disease without esophagitis; K59.09 Other constipation; F41.9 Anxiety disorder, unspecified; R91.1 Solitary pulmonary nodule; Z23 Encounter for immunization; Z91.14 Patient's other noncompliance with medication regimen; Z86.711 Personal history of pulmonary embolism; Z79.01 Long term (current) use of anticoagulants; Z86.79 Personal history of other diseases of the circulatory system